=== PATIENT | female | born 2000 | race Caucasian/White ===

== ENCOUNTER 2018-12-27 12:56 | Emergency (ER) | payer OTHER ==
[2018-12-27] MEDS ORDERED: NS 1,000 ML IV ONE ×2 (13:25→14:00)
[2018-12-27] MEDS ORDERED: LORazepam 2 MG/ML INJ IVP ONE (13:40)
[2018-12-27 13:45] LABS: PLATELET COUNT 346 10^3/uL (150-400)
--- NOTE | 2018-12-27 13:48 | EDPHY ---
H & P Time Seen by Provider: 12/27/18 13:07 HPI/ROS: CHIEF COMPLAINT: Anxiety, chest pain, cocaine use HISTORY OF PRESENT ILLNESS: The patient is a 18-year-old female who presents emergency department with multiple complaints. The patient states she started snorting cocaine last night. She has cocaine throughout the night with the last dose being 3 hr ago. She now feels anxious and jittery. She feels as though she has chest pressure. She feels mildly short of breath. Patient does use cocaine before but has not had this significant of symptoms. Patient denies fevers or chills. No leg pain or swelling. No recent travel. REVIEW OF SYSTEMS: 10 systems were reveiwed and are negative with the exception of the elements mentioned in the history of present illness. Past Medical/Surgical History: Includes cocaine use Smoking Status: Never smoked Physical Exam: Vitals noted. Tachycardic GENERAL: Anxious, in no acute distress, alert. HEENT: Eyes normal to inspection, normal pharynx, no signs of dehydration. NECK: Normal, supple. RESPIRATORY: Clear to auscultation bilaterally, no rales, rhonchi or wheezing. CVS: Regular rate and rhythm, no rubs, murmurs, or gallops. ABDOMEN: Soft, nontender, nondistended, no organomegaly. BACK: Normal to inspection, no CVA tenderness. SKIN: Normal color, no rash, warm, dry. No pallor. EXTREMITIES: No pedal edema, no calf tenderness, no Homans sign or cords, no joint swelling. NEURO/PSYCH: Alert and oriented, anxious, normal motor sensory exam. Constitutional: Initial Vital Signs Temperature (C) 37.2 C 12/27/18 12:58 Heart Rate 137 H 12/27/18 12:58 Respiratory Rate 20 12/27/18 12:58 Blood Pressure 120/74 12/27/18 12:58 O2 Sat (%) 100 12/27/18 12:58 O2 Delivery Mode Room Air Allergies/Adverse Reactions: No Known Allergies Allergy (Unverified 12/27/18 12:57) Home Medications: Medication Instructions Recorded Bcp 12/27/18 NK [No Known Home Meds] 12/27/18 Medical Decision Making - Diagnostics Imaging Results: Imaging Impressions Chest X-Ray 12/27/18 13:40 Impression: Chest negative for acute abnormality. ED Course/Re-evaluation: In the emergency department I discussed possible etiologies with the patient. I answered all her questions. IV was placed. Patient was given normal saline. She was given Ativan 1 mg IV for anxiety. Laboratory studies and EKG were obtained. EKG shows normal sinus tachycardia, normal rate, normal axis, normal intervals. There are no ST or T-wave abnormalities. EKG is normal as interpreted by me[place] [id number]. Chemistry was notable for slightly low potassium at 3.3. Anion gap was elevated at 19. Troponin was negative. Patient was given potassium chloride 60 mEq orally. She is given a 2nd L of normal saline. Chest x-ray: Please refer the dictated report. No acute disease. Repeat chemistry was ordered. Repeat chemistry was improved. I rechecked the patient. She was feeling much better. No chest pain or shortness of breath. I discussed the findings with the patient answered all her questions. She is given warnings prior to leaving. She will return worsening symptoms. Differential Diagnosis: My differential includes but is not limited to electrolyte abnormality, sugar abnormality, drug abuse, dehydration, pneumothorax, hemothorax, ACS, acute VT, myocarditis, pericarditis - Data Points Laboratory Results: Laboratory Results 12/27/18 12:10 12/27/18 14:56 12/27/18 12/27/18 12/27/18 15:01 14:56 12:10 WBC RBC Hgb Hct MCV MCH MCHC RDW Plt Count MPV Neut % (Auto) Lymph % (Auto) [place] % (Auto) Eos % (Auto) Baso % (Auto) Nucleat RBC Rel Count Absolute Neuts (auto) Absolute Lymphs (auto) Absolute Monos (auto) Absolute Eos (auto) Absolute Basos (auto) Absolute Nucleated RBC Immature Gran % Immature Gran # Sodium 137 mEq/L mEq/L 137 mEq/L mEq/L (135-145) (135-145) Potassium 3.5 mEq/L mEq/L 3.3 mEq/L L mEq/L (3.5-5.2) (3.5-5.2) Chloride 109 mEq/L mEq/L 104 mEq/L mEq/L (97-110) (97-110) Carbon Dioxide 19 mEq/l L mEq/l 14 mEq/l L mEq/l (22-31) (22-31) Anion Gap 9 mEq/L mEq/L 19 mEq/L H mEq/L (6-14) (6-14) BUN 11 mg/dL mg/dL 13 mg/dL mg/dL (7-23) (7-23) Creatinine 0.7 mg/dL mg/dL 0.8 mg/dL mg/dL (0.6-1.0) (0.6-1.0) Estimated GFR > 60 > 60 Glucose 85 mg/dL mg/dL 101 mg/dL H mg/dL (70-100) (70-100) Calcium 7.9 mg/dL L mg/dL 9.7 mg/dL mg/dL (8.5-10.4) (8.5-10.4) POC Troponin I 0.00 ng/mL ng/mL (0.00-0.08) 12/27/18 12:10 WBC 15.40 10^3/uL H 10^3/uL (3.80-9.50) RBC 4.14 10^6/uL L 10^6/uL (4.18-5.33) Hgb 12.5 g/dL L g/dL (12.6-16.3) Hct 36.6 % L % (38.0-47.0) MCV 88.4 fL fL (81.5-99.8) MCH 30.2 pg pg (27.9-34.1) MCHC 34.2 g/dL g/dL (32.4-36.7) RDW 14.3 % % (11.5-15.2) Plt Count 346 10^3/uL 10^3/uL (150-400) MPV 10.2 fL fL (8.7-11.7) Neut % (Auto) 74.1 % % (39.3-74.2) Lymph % (Auto) 18.0 % % (15.0-45.0) [place] % (Auto) 7.2 % % (4.5-13.0) Eos % (Auto) 0.1 % L % (0.6-7.6) Baso % (Auto) 0.3 % % (0.3-1.7) Nucleat RBC Rel Count 0.0 % % (0.0-0.2) Absolute Neuts (auto) 11.41 10^3/uL H 10^3/uL (1.70-6.50) Absolute Lymphs (auto) 2.77 10^3/uL 10^3/uL (1.00-3.00) Absolute Monos (auto) 1.11 10^3/uL H 10^3/uL (0.30-0.80) Absolute Eos (auto) 0.02 10^3/uL L 10^3/uL (0.03-0.40) Absolute Basos (auto) 0.05 10^3/uL 10^3/uL (0.02-0.10) Absolute Nucleated RBC 0.00 10^3/uL 10^3/uL (0-0.01) Immature Gran % 0.3 % % (0.0-1.1) Immature Gran # 0.04 10^3/uL 10^3/uL (0.00-0.10) Sodium Potassium Chloride Carbon Dioxide Anion Gap BUN Creatinine Estimated GFR Glucose Calcium POC Troponin I Medications Given: Discontinued Medications Sodium Chloride (Ns) 1,000 mls @ 0 mls/hr IV EDNOW ONE; Wide Open PRN Reason: Protocol Stop: 12/27/18 13:26 Last Admin: 12/27/18 13:31 Dose: 1,000 mls Sodium Chloride (Ns) 1,000 mls @ 0 mls/hr IV EDNOW ONE; Wide Open PRN Reason: Protocol Stop: 12/27/18 14:01 Last Admin: 12/27/18 14:16 Dose: 1,000 mls Lorazepam (Ativan Injection) 1 mg IVP EDNOW ONE Stop: 12/27/18 13:41 Last Admin: 12/27/18 13:43 Dose: 1 mg Potassium Chloride (Potassium Chloride Oral Liquid) 60 meq PO EDNOW ONE Stop: 12/27/18 14:02 Last Admin: 12/27/18 14:21 Dose: 60 meq Point of Care Test Results: Chemistry 12/27/18 15:01 POC Troponin I 0.00 ng/mL ng/mL (0.00-0.08) Departure - Departure Disposition: Home, Routine, Self-Care Clinical Impression: Cocaine use Chest pain Qualifiers: Chest pain type: unspecified Qualified Code(s): R07.9 - Chest pain, unspecified Condition: Good Instructions: Chest Pain (ED), Cocaine Abuse (ED) Additional Instructions: Return with increasing chest pain, shortness of breath, fever or any other concerns. Avoid using cocaine. Referrals: [facility],. [Clinic] - 5-7 days, call for appt.
[2018-12-27] MEDS ORDERED: POTASSIUM CL 20 MEQ/15 ML UDCUP PO ONE (14:01)
[2018-12-27 16:02] VITALS: BP 122/78
--- NOTE | 2019-01-06 16:43 | CPEKG ---
Test Reason : OPEN Blood Pressure : / mmHG Vent. Rate : 108 BPM Atrial Rate : 110 BPM P-R Int : 163 ms QRS Dur : 092 ms QT Int : 378 ms P-R-T Axes : 079 092 -31 degrees QTc Int : 507 ms Sinus tachycardia Borderline right axis deviation Borderline T abnormalities, inferior leads Prolonged QT interval Confirmed by Daniel Floyd ([id number]) on 01/06/2019 4:43:13 PM Referred By: Kayleigh Boucher Confirmed By:Daniel Floyd
== END 2018-12-27 16:02 | disposition home or self-care (01) ==
DX: R07.9 Chest pain, unspecified (principal); F14.90 Cocaine use, unspecified, uncomplicated; E86.9 Volume depletion, unspecified
CPT/HCPCS: 84484-ER; 96374; J2060